=== PATIENT | male | born 1980 | race Caucasian/White ===

== ENCOUNTER 2017-01-12 07:21 | Emergency (ER) | payer SELFPAY ==
[~2017-01-12] VITALS: Ht 182.9 cm; Wt 160.1 kg
[2017-01-12 07:23] VITALS: BP 156/108
[2017-01-12] MEDS ORDERED: DIAZEPAM 5 MG TABLET ONE (07:59)
[2017-01-12] MEDS ORDERED: HYDROcodone/APAP 5/325 TABLET ONE (08:00)
[2017-01-12] MEDS ORDERED: DIAZEPAM 5 MG TABLET PO ONE (08:00)
[2017-01-12] MEDS ORDERED: HYDROcodone/APAP 5/325 TABLET PO ONE (08:00)
[2017-01-12] MEDS ORDERED: KETOROLAC 30 MG/1 ML IM ONE (08:00)
[2017-01-12] MEDS ORDERED: KETOROLAC 30 MG/1 ML ONE (08:00)
== END 2017-01-12 09:07 | disposition home or self-care (01) ==
LOC: ED 08:50
DX: S39.012A Strain of muscle, fascia and tendon of lower back, initial encounter (principal); M25.552 Pain in left hip; X58.XXXA Exposure to other specified factors, initial encounter; Y93.89 Activity, other specified; Y99.8 Other external cause status; Y92.89 Other specified places as the place of occurrence of the external cause
CPT/HCPCS: 96372; 99283; J1885